=== PATIENT | female | born 1930 | race Caucasian/White ===

== ENCOUNTER → 2017-07-02 | Outpatient (CLI) | payer BC, MEDICARE, OTHER ==
--- NOTE | 2017-07-02 11:40 | XR ---
EXAMINATION TYPE: XR chest 2V DATE OF EXAM: 07/02/2017 COMPARISON: NONE HISTORY: Cough TECHNIQUE: Frontal and lateral views of the chest are obtained. FINDINGS: I question a spinal curvature, patient appears rotated. Heart size is within normal limits . There is bronchial wall thickening. No evident pneumonia, pneumothorax, or pleural effusion. Ossifi c density superimposed over the right scapula is present, arthropathy noted in the acromioclavicular joints. Pulmonary vascularity and mechelle within normal limits. The aorta is dense. IMPRESSION: Correlate for bronchitis, reactive airways disease. Possible synovial osteochondromatosi s right shoulder, correlate for scoliosis.
--- NOTE | 2017-07-02 11:49 | XR ---
Lumbosacral spine HISTORY: Spondylosis, low back pain 5 views of lumbosacral spine There is a marked S-shaped lumbar scoliosis. Lumbar vertebral bodies show spondylosis, there is no sp ondylolysis. Loss of disc height present at the intervertebral levels. Vacuum phenomenon is also note d at multiple levels. Sclerosis present in the posterior elements compatible with facet arthropathy. Vertebral body height is maintained. Bone mineralization is reduced. Anterolisthesis grade 1 L5-S1. T here are vascular calcifications. Postop change noted to the hip. IMPRESSION: Scoliosis, degenerative disc disease, facet arthropathy. Additional findings above.
== END | disposition home or self-care (01) ==
LOC: RADXRMAIN 10:51
PROVIDERS: ATTEND Internal Medicine
DX: M43.17 Spondylolisthesis, lumbosacral region (principal); M51.37 Other intervertebral disc degeneration, lumbosacral region; M46.97 Unspecified inflammatory spondylopathy, lumbosacral region; M41.87 Other forms of scoliosis, lumbosacral region; R05 Cough; Z98.890 Other specified postprocedural states
CPT/HCPCS: 71046; 72110

== ENCOUNTER → 2017-12-03 | Outpatient (CLI) | payer MEDICARE ==
--- NOTE | 2017-12-03 16:42 | FL ---
EXAMINATION: Cervical and Thoracic Esophagram DATE OF EXAM: 12/03/2017 CLINICAL INDICATION: 87-year-old female with dysphasia and sensation of solid foods sticking in the t hroat. Heartburn. COMPARISON: None Total Fluoroscopy Time: 2 minutes 33 seconds. Total images: 39 FINDINGS: The swallowing mechanism is normal and hypopharyngeal anatomy is preserved. The cervical and thoracic portions have a normal course and caliber. However, there are moderate to s evere tertiary peristaltic contractions. This resulted in delayed clearance of contrast from the esop hagus and persistently postcontrast when the patient is prone or supine. When the patient is brought back upright, contrast passes into the stomach via gravity. The mucosa is normal and no persistent filling defect is encountered. There is a small hiatal hernia and severe gastroesophageal reflux when the patient performs Valsalva maneuver and turns towards the right. IMPRESSION: 1. Small hiatal hernia with severe gastroesophageal reflux to the thoracic inlet. 2. Presbyesophagus. Contrast remains pooled throughout the esophagus in the prone or supine position and passes into the stomach via gravity when the patient is brought upright.
== END | disposition home or self-care (01) ==
LOC: RADFLWHC 10:04
PROVIDERS: ATTEND Internal Medicine
DX: K44.9 Diaphragmatic hernia without obstruction or gangrene (principal); K21.9 Gastro-esophageal reflux disease without esophagitis; K22.8 Other specified diseases of esophagus
CPT/HCPCS: 74220

== ENCOUNTER → 2018-02-28 | Outpatient (CLI) | payer MEDICARE ==
--- NOTE | 2018-02-28 12:49 | US ---
EXAMINATION TYPE: US carotid duplex BILAT DATE OF EXAM: 02/28/2018 COMPARISON: Carotid ultrasound September 17, 2015 CLINICAL HISTORY: occlusion and stenosis otoniel [id number]. follow up exam, no h/o stroke EXAM MEASUREMENTS: RIGHT: Peak Systolic Velocity (PSV) cm/sec ----- Right CCA: 80.0 ----- Right ICA: 77.8 ----- Right ECA: 114.6 ICA/CCA ratio: 1.0 RIGHT: End Diastole cm/sec ----- Right CCA: 20.5 ----- Right ICA: 18.3 ----- Right ECA: 15.2 LEFT: Peak Systolic Velocity (PSV) cm/sec ----- Left CCA: 75.6 ----- Left ICA: 91.0 ----- Left ECA: 94.3 ICA/CCA ratio: 1.2 LEFT: End Diastole cm/sec ----- Left CCA: 19.4 ----- Left ICA: 91.0 ----- Left ECA: 9.5 VERTEBRALS (direction of flow): Right Vertebral: Antegrade Left Vertebral: Antegrade Rhythm: Arrhythmia Grayscale images redemonstrate mild to moderate peripheral plaque at bilateral carotid bulbs. Velocit y measurements and ratios remain within normal limits. IMPRESSION: Mild to moderate atherosclerotic change bilaterally without hemodynamically significant stenosis clearly seen in either internal carotid artery. Arrhythmia noted by technologist during real -time scanning. Advise further investigation with 24 hour Holter monitoring if this is not known find ing. Criteria for Assigning % of Stenosis / Diameter reduction (Estimation based on the indirect measurements of the internal carotid artery velocities (ICA PSV). 1. Normal (no stenosis)=ICA PSV < 125 cm/s: ratio < 2.0: ICA EDV<40 cm/s. 2. Less than 50% stenosis=ICA PSV < 125 cm/s: ratio < 2.0: ICA EDV<40 cm/s. 3. 50 to 69% stenosis=ICA PSV of 125 to 230 cm/s: ration 2.0 ? 4.0: ICA EDV 40-100 cm/s. 4. Greater than 70% stenosis to near occlusion= ICA PSV > 230 cm/s: ratio > 4.0: ICA EDV > 100 cm/s. 5. Near occlusion= ICA PSV velocities may be low or undetectable: variable ratio and ICA EDV. 6. Total occlusion=unable to detect flow.
== END | disposition home or self-care (01) ==
LOC: RADUSWWP 12:12
PROVIDERS: ATTEND Internal Medicine
DX: I65.23 Occlusion and stenosis of bilateral carotid arteries (principal); I49.9 Cardiac arrhythmia, unspecified
CPT/HCPCS: 93880